=== PATIENT | male | born 2000 | race African-American/Black ===

== ENCOUNTER 2020-09-15 04:48 | Emergency (ER) | payer SELFPAY ==
[~2020-09-15] VITALS: Ht 170.2 cm; Wt 82.0 kg
[2020-09-15 04:50] VITALS: BP 148/100
== END 2020-09-15 05:25 ==
LOC: ER 05:23
DX: R45.850 Homicidal ideations (principal); F20.9 Schizophrenia, unspecified; Y35.213A Legal intervention involving injury by tear gas, suspect injured, initial encounter; Y93.89 Activity, other specified; Y92.89 Other specified places as the place of occurrence of the external cause
CPT/HCPCS: 99283